=== PATIENT | male | born 1980 | race Caucasian/White ===

== ENCOUNTER 2020-12-17 15:06 | Emergency (ER) | payer OTHER ==
[~2020-12-17] VITALS: Ht 175.3 cm; Wt 88.0 kg
[2020-12-17 15:30] VITALS: BP 119/75
--- NOTE | 2020-12-17 16:04 | PHYS DOC ---
Past History Past Medical History: No Pertinent History Past Surgical History: Other Additional Past Surgical Histo: wisdom teeth, left knee scope General Adult EDM: Chief Complaint: HEADACHE HPI: HPI: Patient is a 40 year old male with overall good health who presents with 8-day history of headache. Patient rates his pain 4/10 at rest, with the worst pain 8/10. Patient reports that when he takes Advil or Excedrin Migraine, the pain goes away but comes right back when the medication wears off. Patient was seen in urgent care on day 1, and was prescribed Flexeril and prednisone. He states that he got better symptom relief from ibuprofen. Additionally, he reports that exercise helps. Patient has significant anxiety regarding his headache, as his dad began to have headaches and from an abdominal aneurysm at 1 year older than the patient is currently. Patient reports he gets a "handful of migraines per year." Patient denies aura, lateralization of pain, trauma, photophobia, phonophobia. He reports crepitus in his neck. He last took Tylenol and his prescribed steroid at lunchtime. Review of Systems: Review of Systems: 12 systems reviewed. ROS negative except as mentioned in HPI. Physical Exam: PE: Constitutional: Well developed, well nourished, no acute distress, non-toxic appearance. HENT: Normocephalic, atraumatic, bilateral external ears normal, oropharynx mo ist, no oral exudates, nose normal. Eyes: PERRLA, EOMI, conjunctiva normal, no discharge. Neck: Normal range of motion, no tenderness, supple, no stridor. Cardiovascular: Heart rate regular rhythm, no murmur. Lungs & Thorax: Bilateral breath sounds clear to auscultation. Abdomen: Bowel sounds normal, soft, no tenderness, no masses, no pulsatile masses. Skin: Warm, dry, no erythema, no rash. Back: No tenderness, no CVA tenderness. Extremities: No tenderness, no cyanosis, no clubbing, ROM intact, no edema. Neurologic: Alert and oriented X 3, normal motor function, normal sensory function, no focal deficits noted. Psychologic: Affect anxious and fidgety, good judgment, mood "worried." Current Patient Data: Vital Signs: Vital Signs Date Time Temp Pulse Resp B/P (MAP) Pulse Ox O2 Delivery O2 Flow Rate FiO2 12/17/20 15:30 97.9 90 16 119/75 (90) 97 Heart Score: C/O Chest Pain: No Course & Med Decision Making: Course & Med Decision Making Pertinent Labs and Imaging studies reviewed. (See chart for details) Patient reports the majority of his headache originates at the base of the occiput and spreads around the crown of his head. This is consistent with tension headache, so he was instructed to continue taking the prednisone and Flexeril he was prescribed from urgent care. Additionally, he was provided with Fioricet here in the department. He will be provided with a prescription for Fioricet going forward. Patient denies significant change in pain with Fioricet. Ketorolac IM was provided in the department. We discussed at length the indications and need for CT angio versus MRI imaging. Patient states he has an appointment with his primary care provider 1 month from now. I reassured him that he appears to be in overall good health at this time, and that he should speak to his family doctor regarding his concerns about his family history. Patient understands and is agreeable to discharge plan. Nabeelon Disclaimer: Evelin Disclaimer: This electronic medical record was generated, in whole or in part, using a voice recognition dictation system. Departure Departure: Impression: Primary Impression: Headache in back of head Additional Impression: Anxiety about health Disposition: 01 HOME / SELF CARE / HOMELESS Condition: STABLE Referrals: PCP,UNKNOWN (PCP) Patient Instructions: General Headache Without Cause, [id number], Tension Headache Additional Instructions: As discussed, there is not an indication for imaging at this time. It would be reasonable to discuss these concerns with your primary care provider at your appointment next month. You may return to the emergency department if your symptoms do not improve or you develop new symptoms. Scripts Butalb/Acetaminophen/Caffeine ([id number]) 1 Each Capsule 1 EACH PO Q4HRS for headache MDD 6 cap, #24 CAP Take 1 to 2 capsules as needed every 4 hours. Maximum 6 Capsules per day. Prov: TESSIE DIANA 12/17/20 TESSIE DIANA Dec 17, 2020 16:04
[2020-12-17] MEDS: BUTALB/APAP/CAFEIN 50/325/40MG TABLET. PO PRN ×2 (16:19→18:23)
[2020-12-17] MEDS ORDERED: BUTA1CAP57 PO (16:46)
[2020-12-17] MEDS ORDERED: KETOROLAC 15 MG/ML VIAL. IM ONE (17:15)
== END 2020-12-17 18:30 | disposition home or self-care (01) ==
LOC: ER 15:06
DX: F41.9 Anxiety disorder, unspecified (principal); R51.9 Headache, unspecified
CPT/HCPCS: 96372; 99283; J1885